=== PATIENT | male | born 1985 ===

== ENCOUNTER → 2023-01-07 11:23 | Outpatient (REF) | payer BC, SELFPAY | LOC: WOUND 11:23 | PROVIDERS: ATTENDING PHYSICIAN Surgery | DX: L97.222 Non-pressure chronic ulcer of left calf with fat layer exposed (principal); L97.323 Non-pressure chronic ulcer of left ankle with necrosis of muscle; I89.0 Lymphedema, not elsewhere classified; L03.116 Cellulitis of left lower limb; L02.416 Cutaneous abscess of left lower limb | CPT/HCPCS: 11042 ==

== ENCOUNTER → 2023-01-28 12:34 | Outpatient (REF) | payer BC, SELFPAY | LOC: WOUND 12:34 | PROVIDERS: ATTENDING PHYSICIAN Surgery | DX: L97.222 Non-pressure chronic ulcer of left calf with fat layer exposed (principal); L02.416 Cutaneous abscess of left lower limb; L97.323 Non-pressure chronic ulcer of left ankle with necrosis of muscle; I89.0 Lymphedema, not elsewhere classified; E66.01 Morbid (severe) obesity due to excess calories; L03.116 Cellulitis of left lower limb | CPT/HCPCS: 11042 ==

== ENCOUNTER → 2023-05-13 10:54 | Outpatient (REF) | payer OTHER, SELFPAY | LOC: WOUND 10:54 | PROVIDERS: ATTENDING PHYSICIAN Surgery | DX: L02.416 Cutaneous abscess of left lower limb (principal); L97.222 Non-pressure chronic ulcer of left calf with fat layer exposed; L97.323 Non-pressure chronic ulcer of left ankle with necrosis of muscle; I89.0 Lymphedema, not elsewhere classified; Z98.84 Bariatric surgery status; E66.01 Morbid (severe) obesity due to excess calories; L03.116 Cellulitis of left lower limb | CPT/HCPCS: 17250; 99212 ==

== ENCOUNTER → 2023-05-27 11:42 | Outpatient (REF) | payer OTHER, SELFPAY | LOC: WOUND 11:42 | PROVIDERS: ATTENDING PHYSICIAN Surgery | DX: L02.416 Cutaneous abscess of left lower limb (principal); L03.116 Cellulitis of left lower limb; L97.222 Non-pressure chronic ulcer of left calf with fat layer exposed; L97.323 Non-pressure chronic ulcer of left ankle with necrosis of muscle; I89.0 Lymphedema, not elsewhere classified; Z98.84 Bariatric surgery status; E66.01 Morbid (severe) obesity due to excess calories | CPT/HCPCS: 97597 ==

== ENCOUNTER → 2023-06-10 11:34 | Outpatient (REF) | payer OTHER, SELFPAY | LOC: WOUND 11:34 | PROVIDERS: ATTENDING PHYSICIAN Surgery | DX: L02.416 Cutaneous abscess of left lower limb (principal); L97.222 Non-pressure chronic ulcer of left calf with fat layer exposed; L97.323 Non-pressure chronic ulcer of left ankle with necrosis of muscle; I89.0 Lymphedema, not elsewhere classified; Z98.84 Bariatric surgery status; E66.01 Morbid (severe) obesity due to excess calories; L03.116 Cellulitis of left lower limb | CPT/HCPCS: 99212 ==